=== PATIENT | female | born 1975 | race Caucasian/White ===

== ENCOUNTER 2017-08-16 10:55 | Emergency (ER) | payer OTHER ==
[~2017-08-16] VITALS: Ht 160 cm; Wt 51.7 kg
[2017-08-16 10:55] VITALS: BP 124/84
[~2017-08-16 10:55] MED LIST: AMIT50TA PO; METO25TA2 PO; PEDI1TAB6 PO; TOPI50TA38 PO; VALA500T5 PO
[2017-08-16] MEDS ORDERED: VALA10005 PO (11:28)
[2017-08-16] MEDS ORDERED: GABA-586 PO (11:28)
--- NOTE | 2017-08-16 11:28 | PHYS DOC ---
Past History Past Medical History: No Pertinent History, Cancer, Migraines Past Surgical History: Appendectomy, Hysterectomy Smoking: Non-smoker Alcohol Use: None Drug Use: None Adult General Chief Complaint Chief Complaint: SHINGLES HPI HPI 42-year-old female presenting with a rash and pain in her face. She recently 6 months ago had shingles. She states that this is similar. The pain is sharp moderate to severe intermittent and without leaving factors. Review of systems is negative for chest pain shortness of breath fevers chills confusion cyanosis vision changes numbness weakness or tingling. All other review of systems is negative unless otherwise noted in history of present illness. ED course: 42-year-old female presenting with shingles-like symptoms. It is atypical with the patient's age. I asked if the patient was immunocompromised in any way. She denies strong corticosteroid use, she denies HIV, she denies any immunosuppression from medications. I provided the patient with gabapentin and valacyclovir to follow-up with her primary care physician in the next 3 or 4 days. The patient was then discharged home in stable condition to follow up with their primary care physician over the next 2-3 days. They were to return if their symptoms worsened or if they were concerned for any reason. Face-to- face discharge instructions and return precautions were given. Patient's questions were answered to their satisfaction. Patient is comfortable plan. Review of Systems Review of Systems SEE ABOVE. Allergies Allergies Allergies Coded Allergies Type Severity Reaction Last Updated Verified propoxyphene napsylate Allergy Unknown 11/02/13 Yes acetaminophen Allergy 11/02/13 Yes ketorolac tromethamine Allergy 11/02/13 Yes oxycodone HCl Allergy 11/02/13 Yes Physical Exam Physical Exam SEE ABOVE Constitutional: Well developed, well nourished, no acute distress, non-toxic appearance. [] HENT: Normocephalic, atraumatic, bilateral external ears normal, oropharynx moist, patient has small vesicular with an erythematous base lesion on the inside of the right side of the base of her nose in the V2 distribution (not on the tip of her nose). She reports severe pain in the V2 distribution of the trigeminal nerve. Eyes: PERRLA, EOMI, conjunctiva normal, no discharge. [] Neck: Normal range of motion, no tenderness, supple, no stridor. [] Cardiovascular:Heart rate regular rhythm, no murmur [] Lungs & Thorax: Bilateral breath sounds clear to auscultation [] Abdomen: Bowel sounds normal, soft, no tenderness, no masses, no pulsatile masses. [] Skin: Warm, dry, no erythema, no rash. [] Back: No tenderness, no CVA tenderness. [] Extremities: No tenderness, no cyanosis, no clubbing, ROM intact, no edema. [] Neurologic: Alert and oriented X 3, normal motor function, normal sensory function, no focal deficits noted. [] Psychologic: Affect normal, judgement normal, mood normal. [] Current Patient Data Vital Signs Vital Signs Date Time Temp Pulse Resp B/P (MAP) Pulse Ox O2 Delivery O2 Flow Rate FiO2 08/16/17 10:55 98.6 102 18 99 Room Air EKG EKG [] Radiology/Procedures Radiology/Procedures [] Course & Med Decision Making Course & Med Decision Making Pertinent Labs and Imaging studies reviewed. (See chart for details) [] Dragon Disclaimer Dragon Disclaimer This electronic medical record was generated, in whole or in part, using a voice recognition dictation system. Departure Departure: Impression: Primary Impression: Pol[place] Disposition: HOME, SELF-CARE Condition: STABLE Referrals: NON,STAFF (PCP) Patient Instructions: CHRISTINA Escalona Shingles - [facility] [place] Additional Instructions: Thank you for allowing us to participate in your care today. Followup with your primary care physician in 3 days if your symptoms do not improve. Call your Primary Doctor tomorrow and inform them of your visit today. If you do not have a primary care provider you can ask for a list of our primary care providers. Return to the emergency department you have any new or concerning findings. This should be evaluated by the primary care physician and any necessary consulting services for continued management within a few days after discharge. Return to emergency room if you have any new or concerning symptoms including but not limited to fever, chills, nausea, vomiting, intractable pain, any new rashes, chest pain, shortness of air, uncontrolled bleeding, difficulty breathing, and/or vision loss. Scripts Valacyclovir Hcl (VALTREX) 1,000 Mg Tablet 1 TAB PO TID, #21 TAB Prov: ANAND CALDERON MD 08/16/17 Gabapentin (GABAPENTIN) 300 Mg Capsule 300 MG PO TID for 7 Days, #21 CAP Prov: ANAND CALDERON MD 08/16/17 ANAND CALDERON MD Aug 16, 2017 11:28
== END 2017-08-16 11:42 | disposition home or self-care (01) ==
LOC: ER 10:55
DX: B02.9 Zoster without complications (principal); G43.909 Migraine, unspecified, not intractable, without status migrainosus; Z88.8 Allergy status to other drugs, medicaments and biological substances; Z88.6 Allergy status to analgesic agent
CPT/HCPCS: 99283